=== PATIENT | female | born 1980 | race Caucasian/White ===

== ENCOUNTER → 2020-04-02 11:25 | Outpatient (CLI) | payer OTHER, SELFPAY ==
[2020-04-02 12:09] LABS: Add Manual Diff / Slide Review NO; Basophils Absolute Auto 0 /uL (0-100); Basophils Percent Auto 0.5 % (0-2); Eosinophils Absolute Auto 0 /uL (0-450); Eosinophils Percent Auto 0.4 % (2-4); Hematocrit 40.7 % (36-46); Hemoglobin 13.7 g/dL (12.0-16.0); Lymphocytes Absolute Auto 1700 /uL (1100-4500); Lymphocytes Percent Auto 29.4 % (25-40); Mean Corpuscular HGB Conc 33.5 % (30-36); Mean Corpuscular Hemoglobin 27.2 PG (26-34); Mean Corpuscular Volume 81.2 fL (80-100); Monocytes Absolute Auto 500 /uL (0-900); Neutrophils Absolute Auto 3600 /uL (1500-7000); Neutrophils Percent Auto 61.7 % (50-75); Platelet Count 241 X10^3/uL (150-400); Red Blood Cell Count 5.01 X10^6/uL (4.0-5.2); Red Cell Distribution Width 13.4 % (11.6-14.8); White Blood Cell Count 5.9 X10^3/uL (4.5-11.0)
[2020-04-02 12:32] LABS: Alanine Aminotransferase 22 IU/L (<35); Albumin 4.6 g/dL (3.5-5.0); Albumin Globulin Ratio 1.6 (1.0-2.8); Alkaline Phosphatase 62 U/L (38-126); Aspartate Aminotransferase 29 IU/L (14-36); Bilirubin Total 0.3 mg/dL (0.2-1.3); Blood Urea Nitrogen 14 mg/dL (7-17); Calcium 9.9 mg/dL (8.4-10.2); Carbon Dioxide 30 mmol/L (22-32); Chloride 105 mmol/L (98-107); Estimated Glomerular Filt Rate > 60.0 mL/min (>60); Globulin 2.8 g/dL (1.7-4.1); Glucose 95 mg/dL (70-100); HEMOLYSIS < 15 (0-50); Sodium 141 mmol/L (137-145); Total Protein 7.4 g/dL (6.3-8.2)
[2020-04-02 13:03] LABS: TSH w/ Reflex to FT4 0.93 uIU/mL (0.47-4.68)
== END ==
PROVIDERS: PCP Family Medicine; Referring Provider Family Medicine; Visit Provider Family Medicine
DX: R53.83 Other fatigue (principal)
CPT/HCPCS: 36415; 80053; 84443; 85025

== ENCOUNTER 2022-04-24 13:21 | Emergency (ER) | payer OTHER, SELFPAY ==
[2022-04-24] VITALS (15 sets, daily range): BP systolic 127–154; BP diastolic 64–110; PULSE 66–77; RESP 16; TEMP 36.9; O2SAT 97–100; BMI 29.9
--- NOTE | 2022-04-24 13:33 | ED_ITS ---
HPI - Abdominal Pain <Jack Cooper PA-C - Last Filed: 04/24/22 18:47> General Chief Complaint: Abdominal Pain Stated Complaint: ABD PAIN, NV Time Seen by Provider: 04/24/22 13:23 Source: patient Mode of arrival: Ambulatory History of Present Illness HPI narrative: This is a 5-year-old female presents to the emergency department due to acute onset lower abdominal pain onset this morning after having a bowel movement and urinating. Patient also reports nausea with 1 episode of vomiting. History of ovarian cyst ?years ago?. Patient is status post hysterectomy and . Denies any, fevers, does report feeling diaphoretic, reports having normal bowel movements. Patient was sent by a previous provider at [facility] for further evaluation to rule out appendicitis. Related Data Previous Rx's Medication Instructions Recorded hydrocodone 5 mg-acetaminophen 325 1 tab PO Q8H PRN pain #21 tabs 04/24/22 mg tablet ondansetron 4 mg disintegrating 4 mg PO Q8H PRN nausea and 04/24/22 tablet vomiting #20 tabs Allergies Allergy/AdvReac Type Severity Reaction Status Date / Time iodine Allergy Severe RASH Verified 04/24/22 13:29 Penicillins Allergy Unknown Verified 04/24/22 13:29 Review of Systems <SHANTELL Mercedes Last Filed: 04/24/22 18:47> Review of Systems Narrative: GENERAL: Reports diaphoresis, Denies chills, fatigue, malaise, fever, HEENT: Denies sinus pain, ear pain, sore throat, difficulty swallowing, dizziness. RESPIRATORY: Denies dyspnea, cough, wheezing, hemoptysis, sputum. CARDIOVASCULAR: Denies chest pain, palpitations, orthopnea, edema, GASTROINTESTINAL: Reports abdominal pain, nausea, vomiting, Denies , diarrhea, constipation, melena. : Denies dysuria, frequency, incontinence, hematuria, urinary retention. MUSCULOSKELETAL: denies weakness, joint pain, or bony pain SKIN: Denies rash, skin lesions, or other NEUROLOGIC: Denies weakness, headache, numbness, change in speech, confusion, seizures, incoordination. PSYCHIATRIC: No concerning psychosocial issues. 12 point review of systems is negative except for those stated above Patient History <SHANTELL Mercedes Last Filed: 04/24/22 18:47> Medical History (Updated 04/24/22 @ 17:47 by Jack Cooper PA-C) Abnormal Pap smear of cervix (~2006) Fibroids (~2012) Surgical History (Updated 04/02/20 @ 18:21 by Kelsey Ramirez) Anesthesia History of section (~07/2018) History of cholecystectomy (~06/2009) Family History (Updated 04/02/20 @ 18:23 by Kelsey Ramirez) Grandmother Cancer Grandfather History of heart disease Grandmother History of emphysema Social History marital status: number of children: 2 household members: spouse and children Smoking Status: Never smoker alcohol intake: current (ON OCCASION ) substance use type: does not use Smoking Status: Never smoker alcohol intake frequency: holidays/special occasions only Substance Use Type: does not use Exam <Jack Cooper PA-C - Last Filed: 04/24/22 18:47> Narrative Exam Narrative: GENERAL: Well-developed patient, in mild distress. HEAD: Atraumatic. Normocephalic. EYES: Pupils equal round and reactive. Extraocular motions intact. No scleral icterus. No injection or drainage. ENT: Nose without bleeding, purulent drainage. Throat without erythema, tonsillar hypertrophy or exudate. Airway patent. NECK: Trachea midline. Non tender CARDIOVASCULAR: Regular rate and rhythm without murmurs, gallops, or rubs. RESPIRATORY: Clear to auscultation. Breath sounds equal bilaterally. No wheezes, rales, or rhonchi. GASTROINTESTINAL: Moderate tenderness to palpation to the suprapubic and right lower quadrant area. Nondistended. EXTREMITIES: No edema or joint tenderness. BACK: Nontender without deformity or crepitance. No flank tenderness. NEURO: AOx3. SKIN: No rash or erythema of visible areas Initial Vital Signs Initial Vital Signs: Vital Signs Temperature 98.4 F 04/24/22 13:24 Pulse Rate 70 04/24/22 13:24 Respiratory Rate 16 04/24/22 13:24 Blood Pressure 141/84 H 04/24/22 13:24 Pulse Oximetry 97 04/24/22 13:24 Oxygen Delivery Method 04/24/22 13:24 <Mee Stallworth DO - Last Filed: 04/25/22 07:13> Initial Vital Signs Initial Vital Signs: Vital Signs Temperature 98.4 F 04/24/22 13:24 Pulse Rate 70 04/24/22 13:24 Respiratory Rate 16 04/24/22 13:24 Blood Pressure 141/84 H 04/24/22 13:24 Pulse Oximetry 97 04/24/22 13:24 Oxygen Delivery Method 04/24/22 13:24 Course <Jack Cooper PA-C - Last Filed: 04/24/22 18:47> Orders Ordered: Discontinued Medications Diphenhydramine HCl (Diphenhydramine 50 Mg/Ml Vial) 25 mg IV NOW ONE Stop: 04/24/22 15:29 Last Admin: 04/24/22 15:35 Dose: 25 mg Documented By: DAWSON Sodium Chloride (Normal Saline 0.9%) 1,000 mls @ 1,000 mls/hr IV BOLUS ONE Stop: 04/24/22 14:34 Last Infusion: 04/24/22 16:23 Dose: 0 mls/hr Documented By: Admin: 04/24/22 14:15 Dose: 1,000 mls/hr Documented By: HARSH Methylprednisolone (Methylprednisolone 125 Mg/2 Ml Vial) 125 mg IV NOW ONE Stop: 04/24/22 15:29 Last Admin: 04/24/22 15:34 Dose: 125 mg Documented By: DAWSON Morphine Sulfate (Morphine 4 Mg/Ml Inj) 4 mg IV NOW ONE Stop: 04/24/22 13:36 Last Admin: 04/24/22 14:15 Dose: 4 mg Documented By: HARSH Morphine Sulfate (Morphine 4 Mg/Ml Inj) 4 mg IV NOW ONE Stop: 04/24/22 14:54 Last Admin: 04/24/22 15:00 Dose: 4 mg Documented By: DAWSON Ondansetron HCl (Ondansetron 4 Mg/2 Ml Inj) 4 mg IV NOW ONE Stop: 04/24/22 13:36 Last Admin: 04/24/22 14:15 Dose: 4 mg Documented By: HARSH Ondansetron HCl (Ondansetron 4 Mg/2 Ml Inj) 4 mg IV NOW ONE Stop: 04/24/22 14:54 Last Admin: 04/24/22 15:00 Dose: 4 mg Documented By: DAWSON Vital Signs Vital signs: Vital Signs - 8 hr 04/24/22 13:24 04/24/22 13:29 04/24/22 13:29 Temperature 98.4 F Pulse Rate 70 73 Respiratory Rate 16 Blood Pressure 141/84 H 141/84 H Pulse Oximetry 97 98 Oxygen Delivery Method Room Air 04/24/22 13:30 04/24/22 13:31 04/24/22 13:31 Temperature Pulse Rate 72 77 Respiratory Rate Blood Pressure 143/67 H Pulse Oximetry 98 98 Oxygen Delivery Method 04/24/22 14:00 04/24/22 14:10 04/24/22 14:10 Temperature Pulse Rate 73 74 Respiratory Rate Blood Pressure 127/83 Pulse Oximetry 99 99 Oxygen Delivery Method 04/24/22 14:30 04/24/22 14:31 04/24/22 14:31 Temperature Pulse Rate 68 69 Respiratory Rate Blood Pressure 154/88 H Pulse Oximetry 100 99 Oxygen Delivery Method 04/24/22 14:57 04/24/22 14:57 04/24/22 15:00 Temperature Pulse Rate 74 Respiratory Rate Blood Pressure 140/87 144/89 H Pulse Oximetry 100 Oxygen Delivery Method 04/24/22 15:00 04/24/22 15:30 04/24/22 15:30 Temperature Pulse Rate 69 66 Respiratory Rate Blood Pressure 149/110 H Pulse Oximetry 100 100 Oxygen Delivery Method 04/24/22 16:00 04/24/22 16:00 04/24/22 17:35 Temperature Pulse Rate 68 Respiratory Rate Blood Pressure 136/83 144/64 H Pulse Oximetry 99 Oxygen Delivery Method 04/24/22 17:35 04/24/22 18:00 Temperature Pulse Rate 71 72 Respiratory Rate Blood Pressure Pulse Oximetry 98 97 Oxygen Delivery Method <Mee Stallworth, DO - Last Filed: 04/25/22 07:13> Orders Ordered: Discontinued Medications Diphenhydramine HCl (Diphenhydramine 50 Mg/Ml Vial) 25 mg IV NOW ONE Stop: 04/24/22 15:29 Last Admin: 04/24/22 15:35 Dose: 25 mg Documented By: DAWSON Sodium Chloride (Normal Saline 0.9%) 1,000 mls @ 1,000 mls/hr IV BOLUS ONE Stop: 04/24/22 14:34 Last Infusion: 04/24/22 16:23 Dose: 0 mls/hr Documented By: Admin: 04/24/22 14:15 Dose: 1,000 mls/hr Documented By: HARSH Methylprednisolone (Methylprednisolone 125 Mg/2 Ml Vial) 125 mg IV NOW ONE Stop: 04/24/22 15:29 Last Admin: 04/24/22 15:34 Dose: 125 mg Documented By: DAWSON Morphine Sulfate (Morphine 4 Mg/Ml Inj) 4 mg IV NOW ONE Stop: 04/24/22 13:36 Last Admin: 04/24/22 14:15 Dose: 4 mg Documented By: HARSH Morphine Sulfate (Morphine 4 Mg/Ml Inj) 4 mg IV NOW ONE Stop: 04/24/22 14:54 Last Admin: 04/24/22 15:00 Dose: 4 mg Documented By: DAWSON Ondansetron HCl (Ondansetron 4 Mg/2 Ml Inj) 4 mg IV NOW ONE Stop: 04/24/22 13:36 Last Admin: 04/24/22 14:15 Dose: 4 mg Documented By: HARSH Ondansetron HCl (Ondansetron 4 Mg/2 Ml Inj) 4 mg IV NOW ONE Stop: 04/24/22 14:54 Last Admin: 04/24/22 15:00 Dose: 4 mg Documented By: DAWSON Vital Signs Vital signs: Vital Signs - 8 hr 04/24/22 13:24 04/24/22 13:29 04/24/22 13:29 Temperature 98.4 F Pulse Rate 70 73 Respiratory Rate 16 Blood Pressure 141/84 H 141/84 H Pulse Oximetry 97 98 Oxygen Delivery Method Room Air 04/24/22 13:30 04/24/22 13:31 04/24/22 13:31 Temperature Pulse Rate 72 77 Respiratory Rate Blood Pressure 143/67 H Pulse Oximetry 98 98 Oxygen Delivery Method 04/24/22 14:00 04/24/22 14:10 04/24/22 14:10 Temperature Pulse Rate 73 74 Respiratory Rate Blood Pressure 127/83 Pulse Oximetry 99 99 Oxygen Delivery Method 04/24/22 14:30 04/24/22 14:31 04/24/22 14:31 Temperature Pulse Rate 68 69 Respiratory Rate Blood Pressure 154/88 H Pulse Oximetry 100 99 Oxygen Delivery Method 04/24/22 14:57 04/24/22 14:57 04/24/22 15:00 Temperature Pulse Rate 74 Respiratory Rate Blood Pressure 140/87 144/89 H Pulse Oximetry 100 Oxygen Delivery Method 04/24/22 15:00 04/24/22 15:30 04/24/22 15:30 Temperature Pulse Rate 69 66 Respiratory Rate Blood Pressure 149/110 H Pulse Oximetry 100 100 Oxygen Delivery Method 04/24/22 16:00 04/24/22 16:00 04/24/22 17:35 Temperature Pulse Rate 68 Respiratory Rate Blood Pressure 136/83 144/64 H Pulse Oximetry 99 Oxygen Delivery Method 04/24/22 17:35 04/24/22 18:00 Temperature Pulse Rate 71 72 Respiratory Rate Blood Pressure Pulse Oximetry 98 97 Oxygen Delivery Method MDM - Abdominal Pain <Jack Cooper PA-C - Last Filed: 04/24/22 18:47> Lab Data Result diagrams: 04/24/22 14:00 04/24/22 14:00 Labs: Lab Results 04/24/22 04/24/22 04/24/22 Range/Units 14:00 14:00 14:00 WBC 15.4 H (4.5-11.0) X10^3/uL RBC 5.11 (4.0-5.2) X10^6/uL Hgb 13.7 (12.0-16.0) g/dL Hct 40.1 (36-46) % MCV 78.4 L (80-100) fL MCH 26.7 (26-34) PG MCHC 34.1 (30-36) % RDW 13.3 (11.6-14.8) % Plt Count 335 (150-400) X10^3/uL Neut % (Auto) 88.6 H (50-75) % Lymph % (Auto) 8.0 L (25-40) % Alfalfa % (Auto) 3.2 (3-14) % Eos % (Auto) 0.0 L (2-4) % Baso % (Auto) 0.2 (0-2) % Neut # (Auto) 97201 H (3206-3322) /uL Lymph # (Auto) 1200 (1917-5816) /uL Alfalfa # (Auto) 500 (0-900) /uL Eos # (Auto) 0 (0-450) /uL Baso # (Auto) 0 (0-100) /uL Sodium 138 (137-145) mmol/L Potassium 4.1 (3.4-5.1) mmol/L Chloride 104 (98-107) mmol/L Carbon Dioxide 21 L (22-32) mmol/L BUN 11 (7-17) mg/dL Creatinine 0.64 (0.52-1.04) mg/dL Estimated GFR > 60 (>60) mL/min BUN/Creatinine Ratio 17.2 (6-22) Glucose 128 H (70-100) mg/dL Lactate (0.7-2.1) mmol/L Calcium 9.4 (8.4-10.2) mg/dL Total Bilirubin 0.3 (0.2-1.3) mg/dL AST 38 H (14-36) IU/L ALT 51 H (<35) IU/L Alkaline Phosphatase 79 (38-126) U/L C-Reactive Protein < 0.5 (<1.0) mg/dL Total Protein 8.2 (6.3-8.2) g/dL Albumin 4.6 (3.5-5.0) g/dL Globulin 3.6 (1.7-4.1) g/dL Albumin/Globulin Ratio 1.3 (1.0-2.8) Lipase 65 (23-300) U/L Procalcitonin (<0.5) ng/mL 04/24/22 04/24/22 Range/Units 14:00 14:00 WBC (4.5-11.0) X10^3/uL RBC (4.0-5.2) X10^6/uL Hgb (12.0-16.0) g/dL Hct (36-46) % MCV (80-100) fL MCH (26-34) PG MCHC (30-36) % RDW (11.6-14.8) % Plt Count (150-400) X10^3/uL Neut % (Auto) (50-75) % Lymph % (Auto) (25-40) % Alfalfa % (Auto) (3-14) % Eos % (Auto) (2-4) % Baso % (Auto) (0-2) % Neut # (Auto) (9427-1462) /uL Lymph # (Auto) (1731-4703) /uL Alfalfa # (Auto) (0-900) /uL Eos # (Auto) (0-450) /uL Baso # (Auto) (0-100) /uL Sodium (137-145) mmol/L Potassium (3.4-5.1) mmol/L Chloride (98-107) mmol/L Carbon Dioxide (22-32) mmol/L BUN (7-17) mg/dL Creatinine (0.52-1.04) mg/dL Estimated GFR (>60) mL/min BUN/Creatinine Ratio (6-22) Glucose (70-100) mg/dL Lactate 1.8 (0.7-2.1) mmol/L Calcium (8.4-10.2) mg/dL Total Bilirubin (0.2-1.3) mg/dL AST (14-36) IU/L ALT (<35) IU/L Alkaline Phosphatase (38-126) U/L C-Reactive Protein (<1.0) mg/dL Total Protein (6.3-8.2) g/dL Albumin (3.5-5.0) g/dL Globulin (1.7-4.1) g/dL Albumin/Globulin Ratio (1.0-2.8) Lipase (23-300) U/L Procalcitonin < 0.03 (<0.5) ng/mL Imaging Data CT scan - abdomen/pelvis: Radiologist's Impression: [place] [address] CT Scan Report Signed Patient: Ethel Piedra MR#: [id number] : 1980 Acct:[id number] Age/Sex: 41 / F Date of Service: 04/24/22 Loc: ED Accession Number: [id number] ?? Procedure: CT abdomen pelvis w con Ordering Provider: Jack Cooper P.A-C PROCEDURE:? CT ABDOMEN PELVIS W CON ? INDICATIONS:? f/u pelvic mass ? TECHNIQUE:? After the administration of intravenous contrast, axial sections acquired from the lung bases to the pubic symphysis.? Coronal and sagittal reformats were performed.? For radiation dose reduction, the following was used:? automated exposure control, adjustment of mA and/or kV according to patient size.? ? COMPARISON:? [facility], CT, CT ABDOMEN PELVIS WO CON, 04/24/2022, 14:43. ? FINDINGS:? Image quality:? Excellent.? ? Lung bases:? Unremarkable. Heart:? No significant findings. ? ABDOMEN: Liver:? Unremarkable.? ? Gallbladder:? Is surgically absent? ? Biliary ducts:? Unremarkable.? ? Pancreas:? Unremarkable.? ? Spleen:? Unremarkable.? ? Adrenal Glands:? Unremarkable.? ? Kidneys and Ureters:? Unremarkable.? ? ? Stomach and Bowel:? Stomach, small bowel loops, and colon are unremarkable.? Peritoneum:? There is a small amount of perihepatic, right pericolic gutter, and pelvic ascites.? No free air.? ? Ventral Wall: ? No hernias.? Abdominal Nodes:? No retroperitoneal or mesenteric adenopathy by size criteria.? Multiple mildly prominent subcentimeter mesenteric lymph nodes are present, predominantly within the left hemiabdomen. Vessels:? Aorta and inferior vena cava are normal in size.? ? PELVIS: Pelvic Organs:? There a partially solid and partially cystic, heterogeneously enhancing mass within the central pelvis at the posterior aspect of the uterus, measuring roughly 85 mm. Bladder:? Unremarkable.? ? Pelvic Nodes: No enlarged lymph nodes.? Miscellaneous: No hernias are seen. ? ? ? Bones:? Unremarkable.? IMPRESSION:? 1. Central pelvic mass, as before.? Small amount of ascites is present, suggestive of peritoneal carcinomatosis. 2. No acute process. 3. Mildly prominent mesenteric lymph nodes, which could be reactive, or indicate metastatic disease.? ? ? Dictated by: Ozzy Grissom M.D. on 04/24/2022 at 16:39 ? Transcribed by: SURYA on 04/24/2022 at 16:41? ? Approved by: Ozzy Grissom M.D. on 04/24/2022 at 17:00 ? US - [employer]UFA[employer]ING [employer] MACHINING: Radiologist's Impression: [place] [address] Ultrasound Report Signed Patient: Ethel Piedra MR#: [id number] : 1980 Acct:[id number] Age/Sex: 41 / F Date of Service: 04/24/22 Loc: ED Accession Number: [id number] ?? Procedure: US pelvic complete Ordering Provider: Jack Cooper P.A-C PROCEDURE:? US PELVIC COMPLETE ? INDICATIONS:? f/u pelvic mass ? TECHNIQUE:? Real-time scanning was performed of the pelvic organs, with image documentation.? Additional endovaginal scanning was necessary due to incomplete visualization of the adnexal and endometrial structures by transabdominal scanning.? ? COMPARISON:? [facility], CT, CT ABDOMEN PELVIS W CON, 04/24/2022, 15:49.? [facility], CT, CT ABDOMEN PELVIS WO CON, 04/24/2022, 14:43. ? FINDINGS:? ?? Uterus:? Uterus is anteverted and normal in size at 9.8 x 6.4 x 5 cm. The myometrium is homogeneous. ? The endometrium measures 11 mm combined thickness.? No intrauterine fibroids seen. ? Ovaries:? Large posterior pelvic heterogeneous predominantly solid mass measuring 8.3 x 7.9 x 4.9 cm.? There is scant peripheral blood flow.? A cystic component with internal echoes measuring 2.5 cm. ? Right ovary is probably visualized measuring 2.7 x 2.6 x 2.1 cm, volume of 8 cc.? Right ovary anechoic cyst measuring 2.5 cm.? Blood flow seen in the right ovary.? No calcification within the liver mass on recent noncontrast CT. A normal left ovary is not seen.? ? Other:? Small volume of free fluid in the pelvic cul-de-sac. ? ? IMPRESSION:? 1. Large posterior pelvic predominantly solid mass measuring 8.3 cm with internal vascularity.? Left ovarian neoplasm is suspected.? Benign and malignant etiologies are in the differential diagnosis.? Pelvic MRI with IV contrast may be helpful for further characterization.? Recommend gynecological consultation.? ? 2. Small volume of free fluid in the pelvic cul-de-sac. ? We strive to produce accurate, complete, and clear reports of imaging services. To assist us in improving patient care, this report was composed using standard report templates and voice recognition software. Therefore, it may contain abnormal punctuation, insertions and/or omissions. Occasional wrong-word or sound-alike substitutions may occur. Though we review the report and make efforts to correct it, we do recommend that the report be read carefully in proper context to recognize any text robert ccuracies. ? ? Dictated by: Partha Mcintyre M.D. on 04/24/2022 at 17:57 ? ? Approved by: Partha Mcintyre M.D. on 04/24/2022 at 18:07 ? MDM Narrative Medical decision making narrative: This is a 41-year-old female presents emergency department referred by her primary care office for acute onset abdominal pain onset this morning. Lab work showed evidence of leukocytosis patient was not febrile and all other vitals within normal limits. No evidence of any kind of acute blood loss anemia. CT scan without contrast originally ordered as patient reported a allergic reaction to iodine. After clarification patient's allergy was a mild rash to the abdomen and patient was premedicated for repeat T CT scan with contrast. Spoke with radiologist to discuss the scan results as well as was recommended ordered pelvic ultrasound. CT scan showed findings concerning for peritoneal carcinomatosis as well as possible left ovarian neoplasm. discuss these findings with on-call general surgeon, Dr. Richardson, who reviewed imaging lab wor k and recommend outpatient follow-up with primary care provider. Discussed the patient with Dr. Sewell of [facility] care he stated that he would inform the patient's primary care provider, Dr. Almodovar, of these findings and will have her follow-up with Dr. Almodovar as early as possible, likely tomorrow for more complete thorough workup. Discussed this plan with the patient is comfortably discharged with medication for pain which was prescribed. Patient's vitals reassuring and felt comfortable discharging patient home with outpatient follow-up. <Mee Stallworth, DO - Last Filed: 04/25/22 07:13> Lab Data Labs: Lab Results 04/24/22 04/24/22 04/24/22 Range/Units 14:00 14:00 14:00 WBC 15.4 H (4.5-11.0) X10^3/uL RBC 5.11 (4.0-5.2) X10^6/uL Hgb 13.7 (12.0-16.0) g/dL Hct 40.1 (36-46) % MCV 78.4 L (80-100) fL MCH 26.7 (26-34) PG MCHC 34.1 (30-36) % RDW 13.3 (11.6-14.8) % Plt Count 335 (150-400) X10^3/uL Neut % (Auto) 88.6 H (50-75) % Lymph % (Auto) 8.0 L (25-40) % Alfalfa % (Auto) 3.2 (3-14) % Eos % (Auto) 0.0 L (2-4) % Baso % (Auto) 0.2 (0-2) % Neut # (Auto) 28905 H (0563-1964) /uL Lymph # (Auto) 1200 (7898-5337) /uL Alfalfa # (Auto) 500 (0-900) /uL Eos # (Auto) 0 (0-450) /uL Baso # (Auto) 0 (0-100) /uL Sodium 138 (137-145) mmol/L Potassium 4.1 (3.4-5.1) mmol/L Chloride 104 (98-107) mmol/L Carbon Dioxide 21 L (22-32) mmol/L BUN 11 (7-17) mg/dL Creatinine 0.64 (0.52-1.04) mg/dL Estimated GFR > 60 (>60) mL/min BUN/Creatinine Ratio 17.2 (6-22) Glucose 128 H (70-100) mg/dL Lactate (0.7-2.1) mmol/L Calcium 9.4 (8.4-10.2) mg/dL Total Bilirubin 0.3 (0.2-1.3) mg/dL AST 38 H (14-36) IU/L ALT 51 H (<35) IU/L Alkaline Phosphatase 79 (38-126) U/L C-Reactive Protein < 0.5 (<1.0) mg/dL Total Protein 8.2 (6.3-8.2) g/dL Albumin 4.6 (3.5-5.0) g/dL Globulin 3.6 (1.7-4.1) g/dL Albumin/Globulin Ratio 1.3 (1.0-2.8) Lipase 65 (23-300) U/L Procalcitonin (<0.5) ng/mL 04/24/22 04/24/22 Range/Units 14:00 14:00 WBC (4.5-11.0) X10^3/uL RBC (4.0-5.2) X10^6/uL Hgb (12.0-16.0) g/dL Hct (36-46) % MCV (80-100) fL MCH (26-34) PG MCHC (30-36) % RDW (11.6-14.8) % Plt Count (150-400) X10^3/uL Neut % (Auto) (50-75) % Lymph % (Auto) (25-40) % Alfalfa % (Auto) (3-14) % Eos % (Auto) (2-4) % Baso % (Auto) (0-2) % Neut # (Auto) (0010-3685) /uL Lymph # (Auto) (2516-8833) /uL Alfalfa # (Auto) (0-900) /uL Eos # (Auto) (0-450) /uL Baso # (Auto) (0-100) /uL Sodium (137-145) mmol/L Potassium (3.4-5.1) mmol/L Chloride (98-107) mmol/L Carbon Dioxide (22-32) mmol/L BUN (7-17) mg/dL Creatinine (0.52-1.04) mg/dL Estimated GFR (>60) mL/min BUN/Creatinine Ratio (6-22) Glucose (70-100) mg/dL Lactate 1.8 (0.7-2.1) mmol/L Calcium (8.4-10.2) mg/dL Total Bilirubin (0.2-1.3) mg/dL AST (14-36) IU/L ALT (<35) IU/L Alkaline Phosphatase (38-126) U/L C-Reactive Protein (<1.0) mg/dL Total Protein (6.3-8.2) g/dL Albumin (3.5-5.0) g/dL Globulin (1.7-4.1) g/dL Albumin/Globulin Ratio (1.0-2.8) Lipase (23-300) U/L Procalcitonin < 0.03 (<0.5) ng/mL ECG Data Interpretation: botnic-normal sinus rhythm rate 70 p.r. interval 150 acute are S [address] changes no T-wave inversion Discharge Plan Departure Patient Disposition: Home Clinical Impression: Generalized abdominal or pelvic swelling or mass or lump Activity Restrictions/Additional Instructions: Thank you for coming to the [facility] Emergency Department today. As we discussed your CT findings showed a mass possibly carcinogenic in nature. Please follow-up with your primary care provider for further evaluation and possible referrals to more specialized care. At this time there are no acute l josue-threatening findings. Please take the pain control as needed for the pain until your able to follow with your primary care provider. We have spoken to Dr. Sewell who will inform Dr. Almodovar that he needs to be seen as soon as possible, please make an appointment with Dr. Almodovar to be seen tomorrow. I hope you feel better soon. Prescriptions: New hydrocodone-acetaminophen 5-325 mg tablet 1 tab PO Q8H PRN (Reason: pain) Qty: 21 0RF ondansetron 4 mg tablet,disintegrating 4 mg PO Q8H PRN (Reason: nausea and vomiting) Qty: 20 0RF Referrals: Elias Almodovar MD [Primary Care Provider] - Visit Report Forms: Patient Portal/API <Mee Stallworth DO - Last Filed: 04/25/22 07:13> Cosign ED Attending Torriature Attestation: I was immediately available in the department for consultation. Documentation has been reviewed. I agree with assessment and plan.
[2022-04-24] MEDS: SODIUM CHLORIDE 0.9% 1,000 ML 1000 ML IV (14:15)
[2022-04-24] MEDS: ONDANSETRON 4 MG/2 ML INJ IV ×2 (14:15→15:00)
[2022-04-24] MEDS: MORPHINE 4 MG/ML INJ IV ×2 (14:15→15:00)
[2022-04-24 14:23] LABS: Add Manual Diff / Slide Review NO; Basophils Absolute Auto 0 /uL (0-100); Basophils Percent Auto 0.2 % (0-2); Eosinophils Absolute Auto 0 /uL (0-450); Hematocrit 40.1 % (36-46); Hemoglobin 13.7 g/dL (12.0-16.0); Lymphocytes Absolute Auto 1200 /uL (1100-4500); Mean Corpuscular HGB Conc 34.1 % (30-36); Mean Corpuscular Hemoglobin 26.7 PG (26-34); Mean Corpuscular Volume 78.4 fL (80-100); Monocytes Absolute Auto 500 /uL (0-900); Monocytes Percent Auto 3.2 % (3-14); Neutrophils Absolute Auto 13600 /uL (1500-7000); Neutrophils Percent Auto 88.6 % (50-75); Platelet Count 335 X10^3/uL (150-400); Red Blood Cell Count 5.11 X10^6/uL (4.0-5.2); Red Cell Distribution Width 13.3 % (11.6-14.8); White Blood Cell Count 15.4 X10^3/uL (4.5-11.0)
--- NOTE | 2022-04-24 14:40 | DI.CT.S_ITS ---
PROCEDURE: CT ABDOMEN PELVIS WO CON INDICATIONS: Suprapubic and RLQ pain TECHNIQUE: Axial sections were acquired from the lung bases to the pubic symphysis. Coronal and sagittal reformats were performed. For radiation dose reduction, the following was used: automated exposure control, adjustment of mA and/or kV according to patient size. COMPARISON: None. FINDINGS: Image quality: Excellent. Lung bases: Unremarkable. Heart: No significant findings. URINARY: Right Kidney: No stones or hydronephrosis. Right Ureter: No hydroureter. Left Kidney: No stones or hydronephrosis. Left Ureter: No hydroureter. Bladder: Normal wall thickness. No stones. ABDOMEN: Liver: Liver is enlarged measuring 19.1 cm with steatosis. Areas of calcification are noted within the liver. Gallbladder: Removed. Biliary ducts: Unremarkable. Pancreas: Unremarkable. Spleen: Unremarkable. Adrenal Glands: Unremarkable. Stomach and Bowel: Stomach, small bowel loops, and colon are nonobstructive. Within the right lower quadrant in the expected region of the appendix, there is an apparent blind ended low-attenuation structure measuring 3.1 x 1.8 cm. There is no surrounding inflammation. Peritoneum: No abnormal intraperitoneal fluid. No free air. Ventral Wall: No hernia. Abdominal Nodes: No enlarged retroperitoneal or mesenteric lymph nodes. Vessels: Aorta and inferior vena cava are normal in size. PELVIS: Pelvic Organs: Unremarkable. Pelvic Nodes: Unremarkable. Miscellaneous: There is a heterogeneously enhancing pelvic mass measuring 5.5 x 8.7 cm. There is mild surrounding free fluid. It is poorly characterized given lack of contrast. Bones: Unremarkable. IMPRESSION: Heterogeneous pelvic mass as above. Further evaluation with contrast study as well as pelvic ultrasound is recommended. Low-attenuation structure within the region of the appendix without surrounding inflammatory change. This could represent a mucocele of the appendix. However, other etiologies cannot be excluded. Further evaluation of this region is recommended with above described contrast exam. Dictated by: Christa Vazquez M.D. on 04/24/2022 at 15:18 Approved by: Christa Vazquez M.D. on 04/24/2022 at 15:53
[2022-04-24 14:43] LABS: Alanine Aminotransferase 51 IU/L (<35); Albumin 4.6 g/dL (3.5-5.0); Albumin Globulin Ratio 1.3 (1.0-2.8); Alkaline Phosphatase 79 U/L (38-126); Aspartate Aminotransferase 38 IU/L (14-36); BUN Creatinine Ratio 17.2 (6-22); Bilirubin Total 0.3 mg/dL (0.2-1.3); Blood Urea Nitrogen 11 mg/dL (7-17); Calcium 9.4 mg/dL (8.4-10.2); Carbon Dioxide 21 mmol/L (22-32); Chloride 104 mmol/L (98-107); Estimated Glomerular Filt Rate > 60 mL/min (>60); Globulin 3.6 g/dL (1.7-4.1); Glucose 128 mg/dL (70-100); HEMOLYSIS < 15 (0-50); Lipase 65 U/L (23-300); Potassium 4.1 mmol/L (3.4-5.1); Sodium 138 mmol/L (137-145); Total Protein 8.2 g/dL (6.3-8.2)
[2022-04-24 14:45] LABS: C-Reactive Protein Quant < 0.5 mg/dL (<1.0)
--- NOTE | 2022-04-24 15:28 | DI.CT.S_ITS ---
PROCEDURE: CT ABDOMEN PELVIS W CON INDICATIONS: f/u pelvic mass TECHNIQUE: After the administration of intravenous contrast, axial sections acquired from the lung bases to the pubic symphysis. Coronal and sagittal reformats were performed. For radiation dose reduction, the following was used: automated exposure control, adjustment of mA and/or kV according to patient size. COMPARISON: [facility], CT, CT ABDOMEN PELVIS WO CON, 04/24/2022, 14:43. FINDINGS: Image quality: Excellent. Lung bases: Unremarkable. Heart: No significant findings. ABDOMEN: Liver: Unremarkable. Gallbladder: Is surgically absent Biliary ducts: Unremarkable. Pancreas: Unremarkable. Spleen: Unremarkable. Adrenal Glands: Unremarkable. Kidneys and Ureters: Unremarkable. Stomach and Bowel: Stomach, small bowel loops, and colon are unremarkable. Peritoneum: There is a small amount of perihepatic, right pericolic gutter, and pelvic ascites. No free air. Ventral Wall: No hernias. Abdominal Nodes: No retroperitoneal or mesenteric adenopathy by size criteria. Multiple mildly prominent subcentimeter mesenteric lymph nodes are present, predominantly within the left hemiabdomen. Vessels: Aorta and inferior vena cava are normal in size. PELVIS: Pelvic Organs: There a partially solid and partially cystic, heterogeneously enhancing mass within the central pelvis at the posterior aspect of the uterus, measuring roughly 85 mm. Bladder: Unremarkable. Pelvic Nodes: No enlarged lymph nodes. Miscellaneous: No hernias are seen. Bones: Unremarkable. IMPRESSION: 1. Central pelvic mass, as before. Small amount of ascites is present, suggestive of peritoneal carcinomatosis. 2. No acute process. 3. Mildly prominent mesenteric lymph nodes, which could be reactive, or indicate metastatic disease. Dictated by: Ozzy Grissom M.D. on 04/24/2022 at 16:39 Transcribed by: SURYA on 04/24/2022 at 16:41 Approved by: Ozzy Grissom M.D. on 04/24/2022 at 17:00
[2022-04-24] MEDS: methylPREDNISolone 125 MG/2 ML VIAL IV (15:34)
[2022-04-24] MEDS: diphenhydrAMINE 50 MG/ML VIAL 25 MG IV (15:35)
--- NOTE | 2022-04-24 16:21 | DI.US.S_ITS ---
PROCEDURE: US PELVIC COMPLETE INDICATIONS: f/u pelvic mass TECHNIQUE: Real-time scanning was performed of the pelvic organs, with image documentation. Additional endovaginal scanning was necessary due to incomplete visualization of the adnexal and endometrial structures by transabdominal scanning. COMPARISON: [facility], CT, CT ABDOMEN PELVIS W CON, 04/24/2022, 15:49. [facility], CT, CT ABDOMEN PELVIS WO CON, 04/24/2022, 14:43. FINDINGS: Uterus: Uterus is anteverted and normal in size at 9.8 x 6.4 x 5 cm. The myometrium is homogeneous. The endometrium measures 11 mm combined thickness. No intrauterine fibroids seen. Ovaries: Large posterior pelvic heterogeneous predominantly solid mass measuring 8.3 x 7.9 x 4.9 cm. There is scant peripheral blood flow. A cystic component with internal echoes measuring 2.5 cm. Right ovary is probably visualized measuring 2.7 x 2.6 x 2.1 cm, volume of 8 cc. Right ovary anechoic cyst measuring 2.5 cm. Blood flow seen in the right ovary. No calcification within the liver mass on recent noncontrast CT. A normal left ovary is not seen. Other: Small volume of free fluid in the pelvic cul-de-sac. IMPRESSION: 1. Large posterior pelvic predominantly solid mass measuring 8.3 cm with internal vascularity. Left ovarian neoplasm is suspected. Benign and malignant etiologies are in the differential diagnosis. Pelvic MRI with IV contrast may be helpful for further characterization. Recommend gynecological consultation. 2. Small volume of free fluid in the pelvic cul-de-sac. We strive to produce accurate, complete, and clear reports of imaging services. To assist us in improving patient care, this report was composed using standard report templates and voice recognition software. Therefore, it may contain abnormal punctuation, insertions and/or omissions. Occasional wrong-word or sound-alike substitutions may occur. Though we review the report and make efforts to correct it, we do recommend that the report be read carefully in proper context to recognize any text inaccuracies. Dictated by: Partha Mcintyre M.D. on 04/24/2022 at 17:57 Approved by: Partha Mcintyre M.D. on 04/24/2022 at 18:07
[2022-04-24 19:35] LABS: Lactate (Lactic Acid) 1.8 mmol/L (0.7-2.1)
[2022-04-24 19:52] LABS: Procalcitonin < 0.03 ng/mL (<0.5)
== END 2022-04-24 19:48 | disposition home or self-care (01) ==
PROVIDERS: Emergency Provider Physician Assistant Medical; PCP Family Medicine
DX: R10.84 Generalized abdominal pain (principal); R19.07 Generalized intra-abdominal and pelvic swelling, mass and lump; R11.2 Nausea with vomiting, unspecified
CPT/HCPCS: 36415; 74176; 74177; 76830; 76856; 80053; 83605; 83690; 84145; 85025; 86140; 93005; 93976; 96361; 96374; 96375; 96376; 99284; J1200; J2270; J2405; J2930

== ENCOUNTER → 2022-04-25 12:22 | Outpatient (CLI) | payer OTHER, SELFPAY ==
[2022-04-25 14:45] LABS: HCG Quantitative /Beta subunit < 2.4 mIU/mL
[2022-04-25 14:59] LABS: Cancer Antigen 125 30.1 U/mL (0-35); Carcinoembryonic Antigen 0.7 ng/mL (0.1-3.0)
[2022-04-26 06:36] LABS: Alpha Fetoprotein 2.8 ng/mL (0.0-6.4)
[2022-04-29 12:17] LABS: Human Epididymis Prot 4 48.6 pmol/L (0.0-63.6)
[2022-04-30 13:32] LABS: Inhibin B 17.2 pg/mL (.)
== END ==
PROVIDERS: PCP Family Medicine; Referring Provider Family Medicine; Visit Provider Family Medicine
DX: N83.209 Unspecified ovarian cyst, unspecified side (principal)
CPT/HCPCS: 36415; 82105; 82378; 83520; 84702; 86304; 86305

== ENCOUNTER → 2024-11-26 07:53 | Outpatient (CLI) | payer OTHER, SELFPAY ==
--- NOTE | 2024-11-26 07:56 | DI.MG.S_ITS ---
MM screening mammo BI: 11/26/2024. BI-RADS: 1 CLINICAL: 44-year old female for bilateral screening mammogram. Tyrer-Cuzick lifetime risk of 11.9%. No personal or first-degree family history of breast cancer. PRIOR EXAMS No prior examinations available. MAMMOGRAPHY TECHNIQUE: 2D and 3D (tomosynthesis) digital mammographic views obtained, with additional images as needed for full coverage. Current study was also evaluated with a Computer Aided Detection (CAD) system. DENSITY C. The breasts are heterogeneously dense, which may obscure small masses. MAMMOGRAPHY FINDINGS Bilateral: No suspicious mass, asymmetry, microcalcification, or other abnormality seen. IMPRESSION: * No evidence of malignancy. RECOMMENDATIONS Bilateral * Annual screening mammography. OVERALL ASSESSMENT CATEGORY BI-RADS-1: Negative. [employer] recommends annual screening mammography beginning at age 40 for women with average risk of breast cancer. ELECTRONICALLY SIGNED: Nolan Parrish M.D. on 11/28/2024 at 07:31:10 AM PT Interpreting Station ID: [id number]
== END ==
PROVIDERS: PCP Family Medicine; Referring Provider Family Medicine; Visit Provider Family Medicine
DX: Z12.31 Encounter for screening mammogram for malignant neoplasm of breast (principal); R92.333 Mammographic heterogeneous density, bilateral breasts
CPT/HCPCS: 77063; 77067